=== PATIENT | male | born 1995 | race Caucasian/White ===

== ENCOUNTER 2024-07-22 08:42 | Emergency (ER) | payer OTHER, SELFPAY ==
--- NOTE | ~2024-07-22 | XR_ITS ---
XR finger 2nd LT min 2V Ordering provider: Flor Dao MD History: . finger injury SMASH TO LT 2ND DISTAL ANTERIOR S.T. . Comparison: None. FINDINGS: BONES: No acute fracture or dislocation. JOINT SPACES: Normal. SOFT TISSUES: Normal. IMPRESSION: No acute osseous abnormality. Reviewed, dictated and finalized at location A.
[2024-07-22 08:43] VITALS: BP 123/76; PULSE 78; RESP 16; TEMP 36.6; O2SAT 98
--- NOTE | 2024-07-22 10:58 | ED.UPPEXIN ---
HPI - Extremity Injury (Upper) General Chief Complaint: Extremity Injury, Upper Stated Complaint: L finger injury Time Seen by Provider: 07/22/24 10:34 History of Present Illness HPI narrative: 29-year-old male presents to emergency department for left 2nd digit pain for few days. Patient states he accidentally shot his finger in a door. He is now reporting a bump under his skin with pain that is worse to palpation. No other injuries acquired. Review of Systems Review of Systems: All systems reviewed & are unremarkable except as noted in HPI and below Exam Narrative: GENERAL: Well-appearing, well-nourished, and in no acute distress. HEAD: Normocephalic, atraumatic. NECK: Supple. CHEST: Clear to auscultation. No respiratory distress. HEART: Regular rate and rhythm. No murmur heard. Normal peripheral pulses. EXTREMITIES: Left 2nd digit with tenderness to the DIP and distal Phalanx with focal area of edema that is tender to palpation. Full active and passive range of motion of finger. Cap refill less than 2. Sensation intact. Radial pulse 2 +. SKIN: Warm, dry, no rash. NEURO: No focal deficits. Alert and oriented x3 Course Vital Signs Vital signs: Vital Signs Temperature 97.8 F 07/22/24 08:43 Pulse Rate 78 07/22/24 08:43 Respiratory Rate 16 07/22/24 08:43 Blood Pressure 123/76 07/22/24 08:43 Pulse Oximetry 98 07/22/24 08:43 Oxygen Delivery Room Air 07/22/24 08:43 Temperature 97.8 F 07/22/24 08:43 Pulse Rate 78 07/22/24 08:43 Respiratory Rate 16 07/22/24 08:43 Blood Pressure 123/76 07/22/24 08:43 Pulse Oximetry 98 07/22/24 08:43 Oxygen Delivery Room Air 07/22/24 08:43 MDM - Extremity Injury (Upper) MDM Narrative Medical decision making narrative: 29-year-old male presents to the emergency department for left 2nd digit pain after smashing his finger in the door. Vitals are stable. Exam is significant for tenderness to the PIP and distal phalanx with a focal area of edema. He is neurovascularly intact with full range of motion of finger. X-ray show no acute abnormalities. Imaging and exam discussed. Was placed in a finger splint and advised to follow-up with PCP. Encouraged Tylenol ibuprofen as needed for pain. Strict ED return precautions discussed. He is agreeable with the plan verbalized understanding. Discharged in stable condition Discharge Plan Discharge Clinical Impression: Finger sprain Qualifiers: Encounter type: initial encounter Finger: index finger Sprain of finger site: interphalangeal joint Laterality: left Qualified Code(s): S63.631A - Sprain of interphalangeal joint of left index finger, initial encounter Patient Disposition: Home, Self-Care Condition: Stable Instructions: Antibiotic Form, Finger Sprain (ED) Additional Instructions: your evaluated in the emergency department for finger pain. Your x-rays reassuring. You have a focal area of swelling which will resolve in time. Please rest, ice and elevate your finger is needed. Please take Tylenol and ibuprofen as directed on the bottle for pain. Please follow-up closely with her primary care provider. Return to the emergency department if you develops white or numb finger, or other concerning symptoms or Follow-up/Referrals: Mao Hargrove MD [Primary Care Provider] - Petar Dobbs MD [Physician] - 1 Day
[2024-07-22 11:28] VITALS: BP 128/76; PULSE 75; RESP 18; TEMP 36.5; O2SAT 99
== END 2024-07-22 11:29 | disposition home or self-care (01) ==
LOC: ANHED 11:18
PROVIDERS: Emergency Provider Physician Assistant
DX: S63.631A Sprain of interphalangeal joint of left index finger, initial encounter (principal); W23.0XXA Caught, crushed, jammed, or pinched between moving objects, initial encounter
CPT/HCPCS: 29130; 73140; 99283

== ENCOUNTER 2024-09-23 08:08 | Emergency (ER) | payer OTHER, SELFPAY ==
--- NOTE | ~2024-09-23 | XR_ITS ---
EXAMINATION: XR knee LT 3V DATE: 09/23/2024 08:30 INDICATION: Left knee pain and swelling TECHNIQUE: Anteroposterior, oblique and lateral views of the left knee were obtained COMPARISON: None. FINDINGS: Alignment is normal. No fracture. Loose osteochondral body at the recess posterior to the intercondy lar notch. No joint effusion. Soft tissues are unremarkable. IMPRESSION: 1. No left knee joint effusion or acute osseous abnormality. Reviewed, dictated and finalized at location B. MODEL
[2024-09-23 08:13] VITALS: BP 132/69; PULSE 64; RESP 16; TEMP 36.2; O2SAT 100
--- NOTE | 2024-09-23 08:33 | ED.GENADULT ---
HPI - General Adult General Chief complaint: Extremity Injury, Lower Stated complaint: left knee pain/swelling Time Seen by Provider: 09/23/24 08:15 History of Present Illness HPI narrative: 29-year-old male presenting to the emergency department for evaluation for intermittent left knee pain. Patient states since he was young his left knee often gives out. Patient states he was helping his mother move some items when his left knee gave out. Patient presents emergency department complaining of increased left knee pain. Patient appears to be in no distress at time of evaluation. Related Data Allergies Allergy/AdvReac Type Severity Reaction Status Date / Time No Known Allergies Allergy Verified 09/23/24 08:09 Review of Systems Review of Systems: All systems reviewed & are unremarkable except as noted in HPI and below Exam Narrative: APPEARANCE: Well appearing, no pain, no distress, well-nourished. HEAD: normocephalic, atraumatic. EYES: PERRLA/EOMI, conjunctivae clear. NOSE: Normal no drainage EARS:TMS clear with good light reflex. THROAT: Pharynx clear, no exudate. NECK: Supple. No adenopathy, no masses. RESPIRATORY: Airway patent, respirations nonlabored. Clear to auscultation bilaterally, no rales, rhonchi, wheezing. CARDIOVASCULAR: Regular rate and rhythm without murmurs rubs or gallops. ABDOMINAL: Soft, nontender, nondistended, normal bowel sounds MUSCULOSKELETAL: Moves all extremities. Strength/ROM intact, No edema, No calf tenderness. NEURO: Alert. Cranial nerves II through XII intact. Good gait. Good coordination SKIN: Warm, dry. Normal Color PSYCHIATRIC: Normal affect/mood. Course Vital Signs Vital signs: Vital Signs Temperature 97.2 F L 09/23/24 08:13 Pulse Rate 64 09/23/24 08:13 Respiratory Rate 16 09/23/24 08:13 Blood Pressure 132/69 09/23/24 08:13 Pulse Oximetry 100 09/23/24 08:13 Oxygen Delivery Room Air 09/23/24 08:13 Temperature 97.2 F L 09/23/24 08:13 Pulse Rate 64 09/23/24 08:13 Respiratory Rate 16 09/23/24 08:13 Blood Pressure 132/69 09/23/24 08:13 Pulse Oximetry 100 09/23/24 08:13 Oxygen Delivery Room Air 09/23/24 08:13 Medical Decision Making [facility] Narrative Medical decision making narrative: 29-year-old male presenting to the emergency department for evaluation for left knee pain. Patient denies any other pain or injury. X-ray was negative for acute fracture dislocation or effusion. The patient was treated with Flexeril. Patient was advised to use an Sang wrap and crutches for limited weight-bearing. Patient was encouraged of close follow-up with his primary care physician. Differential Diagnosis Differential Diagnosis: Knee fracture, knee strain, ACL strain, internal derangement of the left knee, Vital Signs Vital Signs: Vital Signs Temperature 97.2 F L 09/23/24 08:13 Pulse Rate 64 09/23/24 08:13 Respiratory Rate 16 09/23/24 08:13 Blood Pressure 132/69 09/23/24 08:13 Pulse Oximetry 100 09/23/24 08:13 Oxygen Delivery Room Air 09/23/24 08:13 Temperature 97.2 F L 09/23/24 08:13 Pulse Rate 64 09/23/24 08:13 Respiratory Rate 16 09/23/24 08:13 Blood Pressure 132/69 09/23/24 08:13 Pulse Oximetry 100 09/23/24 08:13 Oxygen Delivery Room Air 09/23/24 08:13 Imaging Data Radiologist's impression: Impressions Knee X-Ray 09/23/24 08:31 IMPRESSION: 1. No left knee joint effusion or acute osseous abnormality. Discharge Plan Discharge Clinical Impression: Knee strain Patient Disposition: Home, Self-Care Condition: Stable Instructions: Antibiotic Form, Crutch Instructions (ED) Additional Instructions: Tylenol and ibuprofen for pain control. Flexeril for muscle spasm. Sang wrap for comfort. Crutches for limited weight-bearing. Have close follow-up with your primary care physician. If your pain persists your primary care physician may wish to order an outpatient MRI. Prescriptions: New cyclobenzaprine 10 mg tablet 10 mg PO BID PRN (Reason: muscle spasm) Qty: 14 0RF Follow-up/Referrals: UNKNOWN,DOCTOR [Primary Care Provider] - Stand Alone Forms: Work/School Release IP
== END 2024-09-23 09:54 | disposition home or self-care (01) ==
PROVIDERS: Emergency Provider Emergency Medicine
DX: S86.912A Strain of unspecified muscle(s) and tendon(s) at lower leg level, left leg, initial encounter (principal); X50.0XXA Overexertion from strenuous movement or load, initial encounter
CPT/HCPCS: 73562; 99283